=== PATIENT | male | born 1955 | race Caucasian/White ===

== ENCOUNTER 2022-10-11 14:08 | Emergency (ER) | payer MEDICARE, BC, SELFPAY ==
[2022-10-11 14:51] VITALS: BP 152/76; PULSE 76; TEMP 36.4; O2SAT 98; BMI 23.6
[2022-10-11 14:56] LABS: Appearance Urine Clear (Clear); Bilirubin Urine Negative (Negative); Blood Urine 3+ (Negative); Color Urine Pink (Yellow); Glucose Urine Negative (Negative); Ketones Urine Negative (Negative); Leukocyte Esterase Urine Trace (Negative); Nitrite Urine Negative (Negative); Protein Urine Trace (Negative); Urobilinogen Urine 0.2 (0.2-1.0)
--- NOTE | 2022-10-11 14:57 | ED_ITS ---
HPI - Male Genitourinary General Time Seen by Provider: 14:57 Date Seen: 10/11/22 Chief complaint: Urogenital Problems, Male Stated complaint: Unable to Urinate Time Seen by Provider: 10/11/22 14:51 Source: patient and RN notes reviewed Mode of arrival: ambulatory Limitations: no limitations History of Present Illness HPI Narrative: Patient is a 67-year-old male coming in with difficulty urinating. He states he feels like he cannot completely empty. There is some lower abdominal pain with this. No fevers chills, no nausea vomiting. Nursing staff had put that he had had a history of kidney stones but he actually had a history of 1 bladder stone years ago. He states he passed it on his own, they had no idea where it came from, did check a uric acid on him and was normal. He states that he is not had any problems since. Related Data Home Medications Medication Instructions Recorded Confirmed amlodipine 10 mg tablet 10 mg PO DAILY 10/11/22 10/11/22 aspirin 81 mg tablet,delayed 81 mg PO DAILY 10/11/22 10/11/22 release (Adult Aspirin Regimen) carvedilol 25 mg tablet 25 mg PO BID 10/11/22 10/11/22 famotidine 40 mg tablet 40 mg PO DAILY 10/11/22 10/11/22 losartan 100 mg tablet 100 mg PO DAILY 10/11/22 10/11/22 metformin 500 mg tablet,extended 1,000 mg PO BID 10/11/22 10/11/22 release 24 hr triamcinolone acetonide 0.1 % applic topical 10/11/22 topical cream Allergies Allergy/AdvReac Type Severity Reaction Status Date / Time Tetracyclines Allergy Intermediate Verified 10/11/22 14:36 Review of Systems Status of ROS: Reports: 6 or more systems reviewed and unremarkable except as noted in History and below PFSH PFS Social History Smoking Status: Current every day smoker What tobacco products do you use: cigarettes How often do you have a drink containing alcohol: never AUDIT-C Alcohol total score: 0 Non-prescribed substance use: denies use Exam Const: Vital Signs, click to edit/add: Vital Signs - 24 hr 10/11/22 14:51 Temperature 97.6 F Pulse Rate [Right Pulse Oximeter] 76 Blood Pressure [Ri ght Upper Arm] 152/76 H Pulse Oximetry 98 Oxygen Delivery Me thod Room Air Nursing staff did bladder scan on arrival and obtained a value of 257 mL. He was able to give small amount of urine on arrival. Documenting provider has reviewed patient's vital signs: yes Common no rmals: no apparent distress, oriented x3, no limitations, healthy appearing and alert General appearance: cooperative, comfortable, well kempt and well developed Nutritional appearance: thin HENMT: Common normals: normocephalic, head/scalp atraumatic, hearing grossly normal bilaterally and external nose normal Head and scalp: normocephalic and atraumatic Face and sinus: normal facial exam Nose: external nose normal Eye: Common normals: PERRL, EOMs intact bilaterally, conjunctivae normal and no scleral icterus Conjunctiva: conjunctiva(e) normal Pupil: PERRL Neck & C-Spine: Common normals: full ROM, no lymphadenopathy and supple Resp: Common normals: normal respiratory effort, no retractions, no use of accessory muscles and clear to auscultation bilaterally Effort & inspection: able to speak in complete sentences Auscultation: clear to auscultation bilaterally Cardio: Common normals: regular rate, regular rhythm, S1 normal heart sound, S2 normal heart sound, no gallops, no clicks and no murmurs Rate: regular rate Rhythm: regular rhythm Heart sounds: S1 normal and S2 normal GI: Common normals: Normal to inspection, nondistended, normoactive bowel sounds present, soft to palpation, non-tender, no hepatosplenomegaly and no masses Palpation: soft and no hepatosplenomegaly Neuro: Common normals: oriented x3 Sensorium/orientation: alert Psych: Appearance: well kempt Course Course Hospital Course: Reviewed with patient that we will get baseline labs, we are waiting his urinalysis. Will obtain CT abdomen pelvis noncontrast to look at the urinary system and see if there is any obstructing stones. This certainly should show us if there is a bladder stone as well. Other possibility is lower back struck dived pathology of urine, UTI. Will guide therapy accordingly pending our lab results and CT. Reevaluation(s) Time of Reevaluation #1: 16:45 Reevaluation #1: Have reviewed with patient his CT scan, have provided a copy. He states he is aware of the pancreatic issue, states he doubt with that 10 years ago. Have reviewed with him that he do just need him to take the copy to his primary care provider to make sure that nothing else needs to be done. Did review that this could be a pre cancerous pancreatic lesion. As far as the kidney stones, have reviewed that he most definitely past 1 on the left side and is now in the bladder. He has 2 more stones in the right side but there is no hydronephrosis, one is 8mm however. Have explained to him that the 2 on the right side are before the bladder, would not be causing him issues with obstructive uropathy. He states he can not pee, just tried to go. Will have nursing staff redo a bladder scan at this time. Reviewed with him at that if he really can not urinate, we may have to place a Barnes catheter. He really is not complaining of pain, more complaints of inability to urinate. Time of Reevaluation #2: 17:19 Reevaluation #2: Patient had 417 mL on bladder scan, Barnes was placed and patient had about 500 mL drained. He declined the Uro jet. We are going to leave Barnes in place given his complaint of obstructive symptoms. It is possible he has underlying BPH that is confounded by passage of kidney stones. Vital Signs Vital signs: Initial Vital Signs Temperature 97.6 F 10/11/22 14:51 Temperature Source Temporal Artery Scan 10/11/22 14:51 Pulse Rate 76 10/11/22 14:51 Pulse Rhythm Regular 10/11/22 14:51 Blood Pressure 152/76 H 10/11/22 14:51 Blood Pressure Mean 101 10/11/22 14:51 Blood Pressure Position Sitting 10/11/22 14:51 Pulse Oximetry 98 10/11/22 14:51 Oxygen Delivery Method Room Air 10/11/22 14:51 Vital Signs Temperature 97.6 F 10/11/22 14:51 Pulse Rate 76 10/11/22 14:51 Blood Pressure 152/76 H 10/11/22 14:51 Pulse Oximetry 98 10/11/22 14:51 Oxygen Delivery Method Room Air 10/11/22 14:51 Temperature 97.6 F 10/11/22 14:51 Pulse Rate 76 10/11/22 14:51 Blood Pressure 152/76 H 10/11/22 14:51 Pulse Oximetry 98 10/11/22 14:51 Oxygen Delivery Method Room Air 10/11/22 14:51 MDM - Male Genitourinary Differential Diagnosis Differential diagnosis: Likely urinary tract infection and acute retention of urine Lab Data Attestation: I reviewed the patient's lab results. Labs: Lab Results 10/11/22 10/11/22 Range/Units 14:44 15:16 WBC 6.41 (4.50-11.00) K/uL RBC 4.44 (4.30-5.90) m/uL Hgb 14.0 (13.5-17.5) gm/dL Hct 42.1 (37.0-53.0) % MCV 95 (80-100) fL MCH 32 (26-34) pg MCHC 33 (32-36) gm/dL RDW Coeff of Millicent 13.7 (11.5-15.5) % Plt Count 296 (140-440) K/uL Neut % (Auto) 67.6 (42.0-72.0) % Lymph % (Auto) 15.1 L (20-44) % Bent % (Auto) 12.3 H (0.0-11.0) % Eos % (Auto) 3.9 (0.0-7.0) % Baso % (Auto) 0.3 (0.0-3.0) % Neut # (Auto) 4.33 (1.7-7.0) K/uL Lymph # (Auto) 1.00 (0.90-2.90) K/uL Bent # (Auto) 0.80 (0.00-0.90) K/UL Eos # (Auto) 0.25 (0.00-0.50) K/uL Baso # (Auto) 0.02 (0.00-0.30) K/uL Sodium 141 (135-149) mmol/L Potassium 5.1 (3.6-5.1) mmol/L Chloride 103 (96-114) mmol/L Carbon Dioxide 25 (20-32) mmol/L BUN 14 (7-30) mg/dL Creatinine 0.8 (0.5-1.5) mg/dL Estimated Creat Clear 54.48 Estimated GFR 98 ml/min Glucose 89 (60-115) mg/dL Calcium 10.5 (8.4-10.6) mg/dL Urine Color [place] A (Yellow) Urine Appearance Clear (Clear) Urine pH 6.0 (5.0-8.5) Ur Specific [place] 1.010 (1.000-1.030) Urine Protein Trace A (Negative) Urine Glucose (UA) Negative (Negative) Urine Ketones Negative (Negative) Urine Blood 3+ A (Negative) Urine Nitrite Negative (Negative) Urine Bilirubin Negative (Negative) Urine Urobilinogen 0.2 (0.2-1.0) Ur Leukocyte Esterase Trace A (Negative) Urine RBC 50-100 A (0-2) Urine WBC 0-2 (0-5) Ur Squamous Epith Cells Few (None-Few) Urine Bacteria Few A (None) Imaging Data CT scan - abdomen: Attestation: I have reviewed the pertinent imaging results. Radiologist's impression: Patient: CLAUDIA AVERY Facility:?[facility] Patient ID:?[id number] Site Patient ID:?[id number]. Site :?[id number] Study:?CT Abdomen/Pelvis W/O-10/11/2022 3:20:25 PM Ordering Physician:?Melanie Angeles Final Report: INDICATION: History kidney stone. Difficulty urinating. TECHNIQUE: CT abdomen and pelvis without contrast. COMPARISON: CT abdomen pelvis 10/31/2012. FINDINGS: Lower chest: 3 millimeter pulmonary nodule in the middle lobe, unchanged since 2012. Liver: Normal in size and attenuation. No suspicious masses. Gallbladder and bile ducts: No stones or inflammation. No biliary dilatation. Pancreas: The markedly abnormal pancreas with multiple coarse calcifications and irregular enlargement of the main pancreatic duct which measures up to 2 centimeters. The main duct measured 1.4 centimeters in maximal dimension in 2013. No discrete solid mass is evident on this noncontrast exam. Spleen: Normal in size. No masses. Adrenal glands: Unchanged right adrenal nodule measuring less than 10 Hounsfield units, consistent with an adenoma. Kidneys: 8 millimeter stone within the distal right ureter near the UVJ (axial series 2, image 115). Additional 3 millimeter stone just proximal to the aforementioned stone. No significant right-sided hydronephrosis. Trace left hydronephrosis. Multiple small nonobstructing left renal calculi. No left ureteral stones. 5 millimeter stone within the urinary bladder. GI tract: Unremarkable. Normal in caliber. No sign of mass or inflammation. Normal appendix. Colonic diverticulosis without evidence of acute diverticulitis. Vasculature: Atherosclerosis suspected. Suspected stenosis of both common iliac arteries. Lymph nodes: No lymphadenopathy. Peritoneum/Abdominal Wall: Unremarkable. No sign of mass or infiltration. No free air or significant free fluid. Pelvis: 6 millimeter calcification in the central prostate in the expected location of the prostatic urethra. Mildly enlarged prostate Bones: Degenerative spondylosis. No suspicious osseous lesion. IMPRESSION: 1. Bilateral nephrolithiasis. 2 stones in the distal right ureter measuring 8 and 3 millimeters without significant right-sided hydronephrosis. Mild left hydronephrosis without left ureteral stones detected. 5 millimeter stone within the urinary bladder, possibly recently passed stone. Additional 6 millimeter prostatic calcification which may be a prostatic urethral stone. 2. Marked dilatation of the main pancreatic duct which measures up to 2 centimeters. 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 Recommend GI consultation. Please note that all CT scans at this facility use dose modulation, iterative reconstruction, and/or weight-based dosing when appropriate to reduce radiation dose to as low as reasonably achievable. Dictated by Cade Thompson MD @ 10/11/2022 3:59:51 PM (Electronic Signature) Discharge Plan Discharge Clinical Impression: Acute urinary obstruction, Kidney stone on left side, Kidney stone on right side, Dilated pancreatic duct Patient Disposition: Home, Self-Care Condition: Stable Instructions: Kidney Stones (ED), Barnes Catheter Placement and Care (ED) Additional Instructions: Need to follow up in clinic next week. They will need to follow up and see if kidney stones are resolving on the right side. Can do a trial of fully removal and voiding in clinic next week. It is possible that you have some underlying prostate issues developing which could be responsible for the urinary obstruction in the context active passage of kidney stones. For discomfort can try Tylenol and ibuprofen per bottle directions. Please bring the copy of the CT report to your follow-up in clinic, do need to make sure that the dilated pancreatic duct needs no further evaluation. If you develop fever, increased abdominal pain with vomiting, do recommend re-evaluation in the ER. It is possible that you may need to see Urology down the road, can be referred from your primary care provider. Activity Level: Activity as Tolerated Prescriptions: No Action carvedilol 25 mg tablet 25 mg PO BID famotidine 40 mg tablet 40 mg PO DAILY triamcinolone acetonide 0.1 % cream topical amlodipine 10 mg tablet 10 mg PO DAILY losartan 100 mg tablet 100 mg PO DAILY metformin 500 mg tablet extended release 24 hr 1,000 mg PO BID aspirin [Adult Aspirin Regimen] 81 mg tablet,delayed release (DR/EC) 81 mg PO DAILY Follow Up/Referrals: José Miguel Harrington MD [Primary Care Provider] - Stand Alone Forms: SMS [employer] Info Instructions
[2022-10-11 15:25] LABS: Bacteria Urine Few; RBC Urine 50-100 (0-2); Squamous Epithelial Cell Urine Few (None-Few); WBC Urine 0-2 (0-5)
[2022-10-11 15:30] LABS: Basophils Absolute Auto 0.02 K/uL (0.00-0.30); Basophils Percent Auto 0.3 % (0.0-3.0); Eosinophils Absolute Auto 0.25 K/uL (0.00-0.50); Eosinophils Percent Auto 3.9 % (0.0-7.0); Hematocrit 42.1 % (37.0-53.0); Immature Granulocytes Abs Auto 0.05 K/uL (0.00-0.30); Immature Granulocytes Pct Auto 0.8 %; Lymphocytes Percent Auto 15.1 % (20-44); Mean Corpuscular HGB Conc 33 gm/dL (32-36); Mean Corpuscular Hemoglobin 32 pg (26-34); Mean Corpuscular Volume 95 fL (80-100); Monocytes Percent Auto 12.3 % (0.0-11.0); Neutrophils Absolute Auto 4.33 K/uL (1.7-7.0); Neutrophils Percent Auto 67.6 % (42.0-72.0); Platelet Count* 296 K/uL (140-440); RDW Coefficient of Variation % 13.7 % (11.5-15.5); Red Blood Count 4.44 m/uL (4.30-5.90); White Blood Count* 6.41 K/uL (4.50-11.00)
[2022-10-11 15:31] LABS: Slide Review Reflex No
[2022-10-11 16:18] LABS: Sodium* 141 mmol/L (135-149)
[2022-10-11 16:19] LABS: Blood Urea Nitrogen* 14 mg/dL (7-30); Calcium* 10.5 mg/dL (8.4-10.6); Carbon Dioxide* 25 mmol/L (20-32); Chloride* 103 mmol/L (96-114); Creatinine* 0.8 mg/dL (0.5-1.5); Est. Creatinine Clearance* 54.48; Estimated Glomerular Filt Rate 98 ml/min; Glucose* 89 mg/dL (60-115); Potassium* 5.1 mmol/L (3.6-5.1)
--- NOTE | 2022-10-11 17:04 | ED.NURSE ---
Pt declined urojet prior to catheter placement. 16fr catheter placed, 10cc balloon. Pt tolerated procedure well.
== END 2022-10-11 18:46 | disposition home or self-care (01) ==
PROVIDERS: Emergency Provider Family Medicine; PCP Family Medicine
DX: N20.0 Calculus of kidney (principal)
CPT/HCPCS: 36415; 51702; 51798; 74176; 80048; 81001; 85025; 87086; 99284